=== PATIENT | male | born 1980 | race African-American/Black ===

== ENCOUNTER 2017-06-29 00:40 | Emergency (ER) | payer SELFPAY ==
[~2017-06-29] VITALS: Ht 177.8 cm; Wt 95.3 kg
[2017-06-29] MEDS ORDERED: Haloperidol 5mg/ml Inj IM ONE ×3 (01:00→03:30)
--- NOTE | 2017-06-29 01:09 | Emergency Room Report ---
History of Present Illness General Chief Complaint: Overdose Source: Patient, Medical Record, EMS Present Illness HPI Is a 37-year-old male with a history of alcohol and drug abuse. Also psychiatric history. Patient is brought in by EMS for possible overdose on PCP. He was agitated. Not cooperative. Mom called 911 when he turned back in the house. Said that he has a history of PCP abuse. Patient denies any drug use. Denies any nausea vomiting. Allergies: Coded Allergies: No Known Allergies (Unverified , 06/29/17) Patient History Past Medical History: see triage record, old chart reviewed, psych hx Past Surgical History: other Family History: none Social History: tobacco use, ETOH, drug use, single Immunizations: other Reviewed Nursing Documentation: PMH: Agreed, PSxH: Agreed Nursing Documentation-PMH History Of Psychiatric Problem: Yes Review of Systems ENT: Denies: sore throat Cardiovascular: Denies: chest pain, palpitations Gastrointestinal/Abdominal: Denies: diarrhea, nausea, vomiting Musculoskeletal: Denies: back problems Skin: Denies: rash Neurological: Denies: WRIGHT, seizures All Other Systems: negative except mentioned in HPI Physical Exam Vital Signs Date Time Temp Pulse Resp B/P Pulse Ox O2 Delivery O2 Flow Rate FiO2 06/29/17 00:33 98.1 114 24 174/99 98 Room Air vitals with tachycardia Sp02 EP Interpretation: reviewed, normal General Appearance: alert/responsive, no apparent distress, non-toxic Head: normocephalic, atraumatic Eyes: PERRL, EOMI ENT: oropharynx normal Neck: supple/symm/no masses Respiratory: effort normal, no rhonchi, no wheezing Cardiovascular: no murmur, gallop, rub Gastrointestinal: non-tender, no mass, non-distended, no rebound/guarding, normal bowel sounds Neurologic: oriented x3, sensory intact, motor strength/tone normal Psychiatric: no suicidal/homicidal ideation, other - Agitated. Yelling. Demanding a bed and food. Skin: no rash, normal palpation Medical Decision Making Diagnostic Impression: Primary Impression: Psychosis Qualified Codes: F23 - Brief psychotic disorder Additional Impression: Drug abuse ER Course Patient presents with drug-induced psychosis. He had to be restrained by police initially. After getting Haldol and Ativan, he is calmer and slept the night. No suicidal thoughts or homicidal thought. No hallucination. This patient is a chronic risk of self injury due to poor impulse control, limited coping skills, and judgment intermittently impaired by intoxication. I believe that the available clinical evidence to suggest that these characteristics derived primarily from personality disorder and are likely very stable over time. Hospitalization would likely attenuate risk of self-harm only during penitentiary period, without lasting risk reduction. Serious self-harm , while possible, would likely be inadvertent, and because of impulsivity, and foreseeable. For these reasons, I do not believe hospitalization would provide meaningful reduction in risk of self-harm. Last Vital Signs Date Time Temp Pulse Resp B/P Pulse Ox O2 Delivery O2 Flow Rate FiO2 06/29/17 00:33 98.1 114 24 174/99 98 Room Air Status: improved Disposition: HOME, SELF-CARE Condition: Stable Additional Instructions: abstain from drugs and alcohol. Go to rehabilitation. Return if worse. VISHAL ROSS M.D. Jun 29, 2017 01:09
[2017-06-29] MEDS ORDERED: LORazepam Inj 2mg/ml 1ml IM ONE (03:30)
[2017-06-29 08:27] VITALS: BP 120/60
== END 2017-06-29 08:31 | disposition home or self-care (01) ==
LOC: EDBD 00:40 → EMR 00:53
DX: F16.159 Hallucinogen abuse with hallucinogen-induced psychotic disorder, unspecified (principal)
CPT/HCPCS: 96372; 99284; J1630

== ENCOUNTER 2020-07-26 03:18 | Emergency (ER) | payer OTHER ==
[~2020-07-26] VITALS: Ht 170.2 cm; Wt 108.9 kg
--- NOTE | 2020-07-26 03:25 | Emergency Room Report ---
History of Present Illness General Chief Complaint: Behavioral Complaint Source: Medical Record, EMS, Law Enforcement Present Illness HPI This is a 40-year-old male brought in by police and EMS for agitation. He has a history of PCP abuse based on previous records here. He was banging on the door of his mom's house. She refused to let them in. She called 911. Patient was very agitated and not cooperative. Was yelling and screaming. Try getting off the gurney. Patient was sedated for safety of himself and staff. Unable to get any history from this patient because he is not cooperative. Allergies: Coded Allergies: No Known Allergies (Unverified , 06/29/17) COVID-19 Screening COVID-19 risk:Contact w/high r: No Has patient experienced mendoza: No COVID-19 Testing performed [employer]: No Patient History Past Medical History: see triage record, old chart reviewed Past Surgical History: other Family History: none Social History: drug use Immunizations: other Reviewed Nursing Documentation: PMH: Agreed; PSxH: Agreed Nursing Documentation-PMH History Of Psychiatric Problem: Yes - ABILIFY; Review of Systems All Other Systems: limited - Secondary to agitation Physical Exam Vital Signs Date Time Temp Pulse Resp B/P (MAP) Pulse Ox O2 Delivery O2 Flow Rate FiO2 07/26/20 03:11 98.4 104 18 164/89 (114) 98 Room Air Vitals with high blood pressure Sp02 EP Interpretation: reviewed, normal General Appearance: alert/responsive, no apparent distress, non-toxic, other - Patient is agitated, not cooperative, screaming. Head: normocephalic, atraumatic Eyes: PERRL, EOMI ENT: oropharynx normal Neck: supple/symm/no masses Respiratory: effort normal, no rhonchi, no wheezing Cardiovascular: no murmur, gallop, rub Gastrointestinal: non-tender, no mass, non-distended, no rebound/guarding, normal bowel sounds Musculoskeletal: gait & station normal Neurologic: oriented x3, sensory intact, motor strength/tone normal Skin: no rash, normal palpation Medical Decision Making Diagnostic Impression: Primary Impression: Drug-induced psychotic disorder Qualified Codes: F19.950 - Other psychoactive substance use, unspecified with psychoactive substance-induced psychotic disorder with delusions Additional Impression: PCP abuse ER Course Pt presents with acute psychosis probably due to noncompliant with his medication and drug. he had to be sedated for safety. better after medications. He is on a 5150 hold for danger to self and other. He is medically cleared for psych evaluation. Last Vital Signs Date Time Temp Pulse Resp B/P (MAP) Pulse Ox O2 Delivery O2 Flow Rate FiO2 07/26/20 03:11 98.4 104 18 164/89 (114) 98 Room Air Status: improved Disposition: PSYCH HOSP/UNIT Condition: Improved Fuad Gama MD Jul 26, 2020 03:25
[2020-07-26] MEDS ORDERED: LORazepam Inj 2mg/ml 1ml IM ONE (03:30)
[2020-07-26] MEDS ORDERED: DiphenhydrAMINE 50mg/ml Inj IM ONE (03:30)
[2020-07-26] MEDS ORDERED: Haloperidol 5mg/ml Inj IM ONE (03:30)
[2020-07-26 03:35] VITALS: BP 164/89
[2020-07-26 04:49] LABS: BASOPHILS % (AUTO) 2.2 % (0.0-2.0); EOSINOPHILS % (AUTO) 0.1 % (0.0-3.0); HEMATOCRIT 37.8 % (42.0-52.0); HEMOGLOBIN 13.3 G/DL (14.2-18.0); LYMPHOCYTES % (AUTO) 9.8 % (20.0-45.0); MEAN CORPUSCULAR VOLUME 87 FL (80-99); MONOCYTES % (AUTO) 10.8 % (1.0-10.0); NEUTROPHILS % (AUTO) 77.2 % (45.0-75.0); PLATELET COUNT 213 K/UL (150-450); RED BLOOD COUNT 4.37 M/UL (4.70-6.10); RED CELL DISTRIBUTION WIDTH 12.8 % (11.6-14.8); WHITE BLOOD COUNT 11.8 K/UL (4.8-10.8)
[2020-07-26 04:51] LABS: ANION GAP 18 mmol/L (5-15); BLOOD UREA NITROGEN 17 mg/dL (7-18); CALCIUM 8.5 MG/DL (8.5-10.1); CARBON DIOXIDE 18 MMOL/L (21-32); CHLORIDE 103 MMOL/L (98-107); CREATININE 1.2 MG/DL (0.55-1.30); POTASSIUM 4.5 MMOL/L (3.5-5.1); SODIUM 139 MMOL/L (136-145)
[2020-07-26 04:53] LABS: APPEARANCE,URINE CLEAR; BILIRUBIN, URINE NEGATIVE (NEGATIVE); COLOR,URINE PALE YELLOW; GLUCOSE, URINE (UA) NEGATIVE (NEGATIVE); KETONES,URINE 3+ (NEGATIVE); LEUKOCYTE ESTERASE ,URINE NEGATIVE (NEGATIVE); NITRITE,URINE NEGATIVE (NEGATIVE); PH,URINE 5 (4.5-8.0); PROTEIN,URINE 2+ (NEGATIVE); UROBILINOGEN,URINE NORMAL MG/DL (0.0-1.0)
[2020-07-26 05:02] LABS: ALANINE AMINOTRANSFERASE 56 U/L (12-78); ALBUMIN 4.2 G/DL (3.4-5.0); ALBUMIN/GLOBULIN RATIO 1.1 (1.0-2.7); ALKALINE PHOSPHATASE 69 U/L (46-116); ASPARTATE AMINO TRANSFERASE 123 U/L (15-37); BILIRUBIN,TOTAL 1.2 MG/DL (0.2-1.0)
[2020-07-26 05:10] LABS: BILIRUBIN,DIRECT 0.2 MG/DL (0.0-0.3)
[2020-07-26 05:30] VITALS: BP 140/81
[2020-07-26 09:32] VITALS: BP 142/83
[2020-07-26 13:30] VITALS: BP 140/81
--- NOTE | 2020-07-26 16:44 | Diagnostic Imaging Report ---
Indication:Leg pain and swelling Technique: Grayscale and duplex Doppler imaging of the veins in left lower extremity performed in real time utilizing compression and augmentation. Comparison: None Findings: Duplex Doppler interrogation of the veins in left lower extremity is performed from the common femoral vein to the popliteal vein. Normal venous compressibility demonstrated throughout. No thrombus identified. Waveform analysis shows good respiratory phasicity and augmentation. IMPRESSION: No evidence of deep venous thrombosis involving the left lower extremity.
== END 2020-07-26 13:30 ==
LOC: EDBD 03:18 → EMR 03:40
DX: F19.950 Other psychoactive substance use, unspecified with psychoactive substance-induced psychotic disorder with delusions (principal); F16.10 Hallucinogen abuse, uncomplicated
CPT/HCPCS: 36415; 80053; 80307; 81003; 82248; 85025; 93971; 96372; G0480; G0481; J1200; J1630; U0002; Z7502; 99285